=== PATIENT | female | born 1955 | race Caucasian/White ===

== ENCOUNTER 2024-11-08 20:55 | Emergency (ER) | payer OTHER ==
[~2024-11-08] VITALS: Ht 167.6 cm; Wt 86.2 kg
[2024-11-09 00:30] VITALS: BP 173/81
== END 2024-11-09 01:17 | disposition home or self-care (01) ==
LOC: ER 20:55
DX: M79.89 Other specified soft tissue disorders (principal); Z88.2 Allergy status to sulfonamides; Z59.89 Other problems related to housing and economic circumstances
CPT/HCPCS: 73610; 93971; 99284-25